=== PATIENT | female | born 1980 | race Caucasian/White ===

== ENCOUNTER 2016-10-12 10:39 | Emergency (ER) | payer BC ==
[~2016-10-12] VITALS: Ht 162.6 cm; Wt 100.0 kg
[~2016-10-12 10:39] MED LIST: ALLEGRA 60MG TA60 MG PO; CEFTIN 250250 MG/TAB PO; CIPRO 500MG TA500 MG PO; FLEXERIL 1010 MG/TAB PO; GLUCOSAMIN 500 PO; NO HOME MEDICATIONS
[2016-10-12 10:42] VITALS: BP 145/72; TEMP 98.6
[2016-10-12] MEDS ORDERED: REQUIP0.25 MG PO (10:45)
[2016-10-12] MEDS ORDERED: LIALDA 1.2 GM1.2 GM PO (10:46)
[2016-10-12] MEDS ORDERED: LEXAPRO 10MG10 MG PO (10:46)
[2016-10-12] MEDS ORDERED: HUMIRA40 MG/0.8 SQ (10:47)
[2016-10-12] MEDS ORDERED: CANASA 1000MG1000 MG RC (10:47)
[2016-10-12] MEDS ORDERED: ATARAX 25MG25 MG/TAB PO (10:48)
[2016-10-12] MEDS ORDERED: PREDNISONE 5MG5 MG PO (10:48)
[2016-10-12 11:27] LABS: PH 5 (5-8); SQUAMOUS EPITHELIAL 0-2 /hpf; URINE APPEARANCE Hazy; URINE BACTERIA None Seen /hpf; URINE BILIRUBIN Negative (NEGATIVE); URINE BLOOD Negative (NEGATIVE); URINE COLOR Yellow; URINE GLUCOSE Negative (NEGATIVE); URINE KETONE Negative (NEGATIVE); URINE RBC 0-2 /hpf; URINE UROBILINOGEN Negative (NEGATIVE); URINE WBC 0-2 /hpf
[2016-10-12] MEDS ORDERED: FLEXERIL 1010 MG/TAB PO (12:17)
[2016-10-12] MEDS ORDERED: NORCO 325 MG-51 TAB PO (12:17)
[2016-10-12 12:37] VITALS: PULSE 81
== END 2016-10-12 12:38 | disposition home or self-care (01) ==
LOC: COL.ER 10:39
PROVIDERS: Nurse Practitioner
DX: M54.5 Low back pain (principal)

== ENCOUNTER 2017-04-23 14:00 | Outpatient (RCR) | payer BC ==
[2017-03-12 14:42] LABS: MEAN CELL VOLUME 93 fl (80.0-100.0); MEAN CORPUSCULAR HGB CONC 34 g/dl (33.0-37.0); MEAN PLATELET VOLUME 8.8 fl (7.4-10.4); PLATELET COUNT 310 K/mm3 (130-400); RED BLOOD COUNT 3.69 M/mm3 (4.10-5.30); REDCELL DISTRIBUTION WIDTH-CV 13.2 % (11.5-14.5)
[2017-03-12 14:44] LABS: HEMATOCRIT 34.3 % (37.0-47.0); HEMOGLOBIN 11.5 g/dl (12.5-16.0); MEAN CORPUSCULAR HEMOGLOBIN 31 pg (27.0-31.0)
[2017-03-12 14:57] LABS: ALBUMIN 3.9 gm/dL (3.5-5.0); BILIRUBIN,TOTAL 0.3 mg/dL (0.0-1.0); CALCIUM 8.8 mg/dL (8.4-10.2); CREATININE, serum 0.69 mg/dL (0.52-1.25); POTASSIUM 3.5 mmol/L (3.4-5.0)
[2017-03-12 16:23] VITALS: BP 133/75; PULSE 74; TEMP 97.9
[2017-03-26 14:21] LABS: HEMATOCRIT 36.2 % (37.0-47.0); HEMOGLOBIN 12.3 g/dl (12.5-16.0); MEAN CELL VOLUME 92 fl (80.0-100.0); MEAN CORPUSCULAR HEMOGLOBIN 31 pg (27.0-31.0); MEAN CORPUSCULAR HGB CONC 34 g/dl (33.0-37.0); MEAN PLATELET VOLUME 8.7 fl (7.4-10.4); PLATELET COUNT 301 K/mm3 (130-400); RED BLOOD COUNT 3.92 M/mm3 (4.10-5.30); REDCELL DISTRIBUTION WIDTH-CV 13.1 % (11.5-14.5)
[2017-03-26 15:16] VITALS: BP 143/98; PULSE 67; TEMP 97.9
[2017-03-26 16:15] LABS: ALBUMIN 4.1 gm/dL (3.5-5.0); BILIRUBIN,TOTAL 0.5 mg/dL (0.0-1.0); CALCIUM 9.3 mg/dL (8.4-10.2); CREATININE, serum 0.72 mg/dL (0.52-1.25); POTASSIUM 3.9 mmol/L (3.4-5.0); TOTAL PROTEIN 7.3 gm/dL (6.4-8.2)
[~2017-04-23] VITALS: Ht 162.6 cm; Wt 108.1 kg
[~2017-04-23 14:00] MED LIST changes: +ATARAX 25MG25 MG/TAB PO; +CANASA 1000MG1000 MG RC; +HUMIRA40 MG/0.8 SQ; +LEXAPRO 10MG10 MG PO; +LIALDA 1.2 GM1.2 GM PO; +NORCO 325 MG-51 TAB PO; +PREDNISONE 5MG5 MG PO; +REQUIP0.25 MG PO
[2017-04-23 14:50] LABS: HEMATOCRIT 37.5 % (37.0-47.0); HEMOGLOBIN 12.7 g/dl (12.5-16.0); MEAN CELL VOLUME 92 fl (80.0-100.0); MEAN CORPUSCULAR HEMOGLOBIN 31 pg (27.0-31.0); MEAN CORPUSCULAR HGB CONC 34 g/dl (33.0-37.0); MEAN PLATELET VOLUME 9.1 fl (7.4-10.4); PLATELET COUNT 294 K/mm3 (130-400); RED BLOOD COUNT 4.06 M/mm3 (4.10-5.30); REDCELL DISTRIBUTION WIDTH-CV 11.9 % (11.5-14.5)
[2017-04-23 14:58] LABS: ALBUMIN 4.2 gm/dL (3.5-5.0); BILIRUBIN,TOTAL 0.5 mg/dL (0.0-1.0); CALCIUM 9.2 mg/dL (8.4-10.2); CREATININE, serum 0.64 mg/dL (0.52-1.25); POTASSIUM 3.6 mmol/L (3.4-5.0); TOTAL PROTEIN 7.2 gm/dL (6.4-8.2)
== END 2017-06-10 ==
LOC: EUO
PROVIDERS: Internal Medicine Gastroenterology
DX: K51.90 Ulcerative colitis, unspecified, without complications (principal)
CPT/HCPCS: J1200; J2920; J3380; J7050

== ENCOUNTER 2017-12-03 14:30 | Outpatient (RCR) | payer BC ==
[2017-10-13 14:51] LABS: HEMATOCRIT 37.7 % (37.0-47.0); HEMOGLOBIN 12.4 g/dl (12.5-16.0); MEAN CELL VOLUME 88 fl (80.0-100.0); MEAN CORPUSCULAR HEMOGLOBIN 29 pg (27.0-31.0); MEAN CORPUSCULAR HGB CONC 33 g/dl (33.0-37.0); MEAN PLATELET VOLUME 9.2 fl (7.4-10.4); PLATELET COUNT 340 K/mm3 (130-400); RED BLOOD COUNT 4.28 M/mm3 (4.10-5.30); REDCELL DISTRIBUTION WIDTH-CV 12.9 % (11.5-14.5)
[2017-10-13 15:02] LABS: ALBUMIN 4.3 gm/dL (3.5-5.0); BILIRUBIN,TOTAL 0.5 mg/dL (0.0-1.0); CALCIUM 9.1 mg/dL (8.4-10.2); CREATININE, serum 0.87 mg/dL (0.52-1.25); POTASSIUM 3.6 mmol/L (3.4-5.0); TOTAL PROTEIN 7.8 gm/dL (6.4-8.2)
[2017-10-13 15:44] VITALS: BP 137/69; PULSE 73; TEMP 98.7
[2017-11-05 14:59] LABS: HEMOGLOBIN 12.2 g/dl (12.5-16.0); MEAN CELL VOLUME 88 fl (80.0-100.0); MEAN CORPUSCULAR HEMOGLOBIN 29 pg (27.0-31.0); MEAN CORPUSCULAR HGB CONC 33 g/dl (33.0-37.0); MEAN PLATELET VOLUME 9.2 fl (7.4-10.4); PLATELET COUNT 332 K/mm3 (130-400); RED BLOOD COUNT 4.23 M/mm3 (4.10-5.30); REDCELL DISTRIBUTION WIDTH-CV 13.5 % (11.5-14.5)
[2017-11-05 15:11] LABS: ALBUMIN 4.2 gm/dL (3.5-5.0); BILIRUBIN,TOTAL 0.4 mg/dL (0.0-1.0); CALCIUM 9.3 mg/dL (8.4-10.2); CREATININE, serum 0.71 mg/dL (0.52-1.25); POTASSIUM 4.1 mmol/L (3.4-5.0); TOTAL PROTEIN 8.3 gm/dL (6.4-8.2)
[2017-11-05 15:13] VITALS: BP 120/57; PULSE 58; TEMP 98.1
[~2017-12-03] VITALS: Ht 162.6 cm; Wt 107.0 kg
[~2017-12-03 14:30] MED LIST changes: +INDERAL 10MG10 MG PO; +ZOLOFT 100MG100 MG PO
[2017-12-03 15:00] LABS: MEAN CELL VOLUME 88 fl (80.0-100.0); MEAN CORPUSCULAR HEMOGLOBIN 29 pg (27.0-31.0); MEAN CORPUSCULAR HGB CONC 33 g/dl (33.0-37.0); MEAN PLATELET VOLUME 9.1 fl (7.4-10.4); PLATELET COUNT 323 K/mm3 (130-400); RED BLOOD COUNT 4.16 M/mm3 (4.10-5.30); REDCELL DISTRIBUTION WIDTH-CV 13.7 % (11.5-14.5)
[2017-12-03 15:01] LABS: HEMATOCRIT 36.7 % (37.0-47.0)
[2017-12-03 15:10] LABS: BILIRUBIN,TOTAL 0.5 mg/dL (0.0-1.0); CALCIUM 9.2 mg/dL (8.4-10.2); CREATININE, serum 0.7 mg/dL (0.52-1.25); POTASSIUM 3.9 mmol/L (3.4-5.0); TOTAL PROTEIN 7.7 gm/dL (6.4-8.2)
[2017-12-03 15:40] VITALS: BP 115/67; PULSE 56; TEMP 98.4
== END 2017-12-03 16:42 | disposition home or self-care (01) ==
LOC: EUO 14:30
PROVIDERS: Internal Medicine Gastroenterology
DX: K51.90 Ulcerative colitis, unspecified, without complications (principal)
CPT/HCPCS: J1200; J2930; J3380; J7050